=== PATIENT | female | born 1940 | race Caucasian/White ===

== ENCOUNTER 2021-09-25 13:52 | Inpatient (IN) | payer MEDICARE, OTHER ==
[~2021-09-25] VITALS: Ht 157.5 cm; Wt 79.4 kg
[~2021-09-25 13:52] MED LIST: AMLO5TAB88 PO; APIX5TAB PO; CHOL100046 PO; FURO-152 PO; LISI20TA31 PO; METO-411 PO; MULT-1203 PO; OXYB5TAB17 PO
[2021-09-25 15:00] VITALS: BP 128/66
[2021-09-25] MEDS ORDERED: ONDANSETRON HCL 4MG/2ML INJ IV PRN (15:00)
[2021-09-25 17:49] LABS: BASOPHILS % 0.8 % (0.0-2.0); HEMATOCRIT. 34.6 % (36.0-48.0); HEMOGLOBIN. 11.7 g/dL (12.0-16.0); LYMPHOCYTES % 24.8 % (20.0-50.0); MEAN CORPUSCULAR HEMOGLOBIN 30.2 pg (28.0-32.0); MEAN CORPUSCULAR VOLUME 89.2 fL (81.0-99.0); MEAN PLATELET VOLUME 7.6 fl (7.4-10.4); MONOCYTES % 10.1 % (2.0-8.0); NEUTROPHILS % 61.3 % (40.0-76.0); PLATELET 305 x1000/uL (130-400); RED BLOOD CELL COUNT 3.88 mill/uL (4.2-5.4); RED CELL DISTRIBUTION WIDTH 15.1 % (11.6-14.6)
[2021-09-25 18:01] LABS: PROTHROMBIN TIME 10.5 sec (9.6-11.0)
[2021-09-25 18:05] LABS: CHLORIDE 98 mEq/L (98-107)
[2021-09-25] MEDS ORDERED: ENOXAPARIN 40MG/0.4ML SYR SUBCUT SCH (21:00)
[2021-09-25 21:30] VITALS: BP 151/67
[2021-09-25] MEDS: METOPROLOL TARTRATE 50MG TABLET PO SCH (21:30)
[2021-09-25 23:31] VITALS: BP 139/65
[2021-09-26] VITALS (14 sets, daily range): BP systolic 113–199; BP diastolic 47–187
[2021-09-26 07:30] LABS: CHLORIDE 103 mEq/L (98-107)
[2021-09-26 07:57] LABS: BASOPHILS % 0.6 % (0.0-2.0); EOSINOPHILS % 2.2 % (0.0-5.0); HEMOGLOBIN. 12.4 g/dL (12.0-16.0); LYMPHOCYTES % 13.8 % (20.0-50.0); MEAN CORPUSCULAR HEMOGLOBIN 29.8 pg (28.0-32.0); MEAN CORPUSCULAR VOLUME 88.8 fL (81.0-99.0); MEAN PLATELET VOLUME 7.6 fl (7.4-10.4); MONOCYTES % 9.3 % (2.0-8.0); NEUTROPHILS % 74.1 % (40.0-76.0); PLATELET 304 x1000/uL (130-400); RED BLOOD CELL COUNT 4.16 mill/uL (4.2-5.4); RED CELL DISTRIBUTION WIDTH 15.4 % (11.6-14.6)
[2021-09-26] MEDS: METOPROLOL TARTRATE 50MG TABLET PO SCH ×2 (10:06→20:21)
[2021-09-26] MEDS: AMLODIPINE 5MG TABLET PO SCH (10:06)
[2021-09-26] MEDS: LISINOPRIL 10MG TABLET PO SCH (10:06)
[2021-09-26] MEDS ORDERED: DEXAMETHASONE 4MG/ML 1ML VIAL ONE (15:53)
[2021-09-26] MEDS ORDERED: ROCURONIUM BROMIDE 10MG/ML VIAL 5ML IV ONE (15:53)
[2021-09-26] MEDS ORDERED: CEFAZOLIN SODIUM 1000MG/VIAL ONE (16:13)
[2021-09-26] MEDS ORDERED: CALCIUM CHLORIDE 1GM/10ML SYR IV ONE ×2 (16:19→18:24)
[2021-09-26] MEDS ORDERED: FENTANYL CITRATE/PF 50MCG/ML 2ML VIAL ONE (16:31)
[2021-09-26] MEDS ORDERED: AMIODARONE HCL 50MG/ML 3ML VIAL IV ONE (16:33)
[2021-09-26] MEDS ORDERED: GLYCOPYRROLATE 0.2 MG/ML 2ML VIAL ONE (18:38)
[2021-09-26] MEDS ORDERED: HYDRALAZINE 20MG/ML VIAL IV PRN (19:00)
[2021-09-26] MEDS ORDERED: FENTANYL CITRATE/PF 50MCG/ML 2ML VIAL IV PRN (19:00)
[2021-09-26 19:20] LABS: BG BASE EXCESS -4.9 mmol/L (-2.0-2.0); BG CARBOXYHEMOGLOBIN 0.6 % (0.5-1.5); BG FRACTION INSPIRED OXYGEN 60; BG HCO3 ACT 20.1 mmol/L (22.0-26.0); BG METHEMOGLOBIN 0.2 % (0.0-1.5); BG OXYHEMOGLOBIN 95.2 % (94.0-97.0); BG PH 7.352 (7.350-7.450); BG SAMPLE SITE ALINE; BG TOTAL HEMOGLOBIN 11.8 g/dL (12.0-18.0); BG VENT MODE MASK - SIMPLE
[2021-09-26] MEDS ORDERED: MORPHINE SULFATE 2 MG/ML CPJ (NOT FOR IM USE) IV NR (20:30)
[2021-09-26] MEDS ORDERED: MORPHINE SULFATE 2 MG/ML CPJ (NOT FOR IM USE) IV PRN (20:45)
[2021-09-26] MEDS ORDERED: SODIUM CHLORIDE 10% FOR INH 15ML VIAL NEB INH SCH (21:00)
[2021-09-26] MEDS: HYDROCODONE/ACETAMINOPHEN 5/325MG TABLET PO PRN (22:29)
[2021-09-27] VITALS (92 sets, daily range): BP systolic 84–271; BP diastolic 52–261
[2021-09-27] MEDS ORDERED: NALOXONE HCL 0.4 MG/ML 1ML VIAL IV PRN (00:15)
[2021-09-27] MEDS: NITROGLYCERIN 0.4MG TABLET SL SL PRN ×2 (00:21→02:25)
[2021-09-27 06:06] LABS: HEMATOCRIT. 34.2 % (36.0-48.0); HEMOGLOBIN. 11.8 g/dL (12.0-16.0); MEAN CORPUSCULAR HEMOGLOBIN 30.2 pg (28.0-32.0); MEAN CORPUSCULAR VOLUME 87.7 fL (81.0-99.0); MEAN PLATELET VOLUME 7.3 fl (7.4-10.4); PLATELET 299 x1000/uL (130-400); RED CELL DISTRIBUTION WIDTH 15.2 % (11.6-14.6)
[2021-09-27 06:10] LABS: CHLORIDE 101 mEq/L (98-107)
[2021-09-27] MEDS ORDERED: POTASSIUM CHLORIDE 20MEQ TABLET SR PO SCH (07:00)
[2021-09-27] MEDS: AMLODIPINE 5MG TABLET PO SCH (08:07)
[2021-09-27] MEDS: METOPROLOL TARTRATE 50MG TABLET PO SCH ×2 (08:07→21:30)
[2021-09-27] MEDS: HYDROCODONE/ACETAMINOPHEN 5/325MG TABLET PO PRN ×3 (08:08→22:13)
[2021-09-27] MEDS: LISINOPRIL 10MG TABLET PO SCH (08:08)
[2021-09-27] MEDS: PIPERACILLIN/TAZOBACTAM 3.375 G in DEXTROSE 5% WATER 50 ML IV SCH ×3 (08:09→21:57)
[2021-09-27] MEDS ORDERED: CLONIDINE 0.1MG TABLET PO PRN (14:30)
[2021-09-27 15:17] LABS: PLATELET ESTIMATE NORMAL
[2021-09-27] MEDS ORDERED: AMOX-424 MT ×2 (17:04)
[2021-09-28] VITALS (97 sets, daily range): BP systolic 107–270; BP diastolic 62–268
[2021-09-28] MEDS: HYDROCODONE/ACETAMINOPHEN 5/325MG TABLET PO PRN ×2 (03:11→07:23)
[2021-09-28] MEDS: PIPERACILLIN/TAZOBACTAM 3.375 G in DEXTROSE 5% WATER 50 ML IV SCH ×3 (05:53→22:26)
[2021-09-28 06:05] LABS: BASOPHILS % 0.1 % (0.0-2.0); EOSINOPHILS % 0.7 % (0.0-5.0); HEMATOCRIT. 33.5 % (36.0-48.0); HEMOGLOBIN. 11.6 g/dL (12.0-16.0); LYMPHOCYTES % 7.2 % (20.0-50.0); MEAN CORPUSCULAR HEMOGLOBIN 30.3 pg (28.0-32.0); MEAN CORPUSCULAR VOLUME 87.8 fL (81.0-99.0); MEAN PLATELET VOLUME 7.3 fl (7.4-10.4); MONOCYTES % 9.5 % (2.0-8.0); NEUTROPHILS % 82.5 % (40.0-76.0); PLATELET 295 x1000/uL (130-400); RED BLOOD CELL COUNT 3.82 mill/uL (4.2-5.4); RED CELL DISTRIBUTION WIDTH 15.4 % (11.6-14.6)
[2021-09-28] MEDS ORDERED: HYDROCODONE/APAP 7.5/325MG 1 TAB TABLET PO PRN (08:00)
[2021-09-28] MEDS ORDERED: POTASSIUM CHLORIDE 20MEQ TABLET SR PO SCH (09:15)
[2021-09-28] MEDS: LISINOPRIL 20MG TABLET PO SCH (09:45)
[2021-09-28] MEDS: METOPROLOL TARTRATE 50MG TABLET PO SCH ×2 (09:45→21:08)
[2021-09-28] MEDS: AMLODIPINE 5MG TABLET PO SCH (09:45)
[2021-09-28] MEDS ORDERED: MORPHINE SULFATE 2 MG/ML CPJ (NOT FOR IM USE) IV PRN (10:15)
[2021-09-28] MEDS ORDERED: METOPROLOL TARTRATE 5MG/5ML VIAL IV SCH (14:00)
[2021-09-28] MEDS: MORPHINE SULFATE 2 MG/ML CPJ (NOT FOR IM USE) IV PRN ×4 (14:12→22:58)
[2021-09-28] MEDS ORDERED: METOPROLOL TARTRATE 5MG/5ML VIAL IV PRN (15:45)
[2021-09-28] MEDS: BENZONATATE 100MG CAPSULE PO PRN (16:46)
[2021-09-28] MEDS: APIXABAN 5 MG TABLET PO SCH (16:46)
[2021-09-28] MEDS: OXYCODONE HCL/ACETAMINOPHEN 5/325MG TABLET PO PRN (21:09)
[2021-09-29] VITALS (14 sets, daily range): BP systolic 108–149; BP diastolic 45–97
[2021-09-29] MEDS: PIPERACILLIN/TAZOBACTAM 3.375 G in DEXTROSE 5% WATER 50 ML IV SCH ×3 (05:25→21:38)
[2021-09-29] MEDS: MORPHINE SULFATE 2 MG/ML CPJ (NOT FOR IM USE) IV PRN (05:37)
[2021-09-29] MEDS: BENZONATATE 100MG CAPSULE PO PRN ×2 (05:37→21:34)
[2021-09-29 07:13] LABS: CHLORIDE 86 mEq/L (98-107)
[2021-09-29 07:23] LABS: BASOPHILS % 0.3 % (0.0-2.0); EOSINOPHILS % 2.2 % (0.0-5.0); HEMATOCRIT. 33.7 % (36.0-48.0); HEMOGLOBIN. 11.6 g/dL (12.0-16.0); LYMPHOCYTES % 8.4 % (20.0-50.0); MEAN CORPUSCULAR HEMOGLOBIN 30.4 pg (28.0-32.0); MEAN PLATELET VOLUME 7.3 fl (7.4-10.4); MONOCYTES % 8.1 % (2.0-8.0); PLATELET 274 x1000/uL (130-400); RED BLOOD CELL COUNT 3.82 mill/uL (4.2-5.4); RED CELL DISTRIBUTION WIDTH 15.4 % (11.6-14.6)
[2021-09-29] MEDS: LISINOPRIL 20MG TABLET PO SCH (09:34)
[2021-09-29] MEDS: OXYCODONE HCL/ACETAMINOPHEN 5/325MG TABLET PO PRN ×2 (09:35→21:29)
[2021-09-29] MEDS: METOPROLOL TARTRATE 50MG TABLET PO SCH ×2 (09:35→21:26)
[2021-09-29] MEDS: APIXABAN 5 MG TABLET PO SCH ×2 (09:35→18:06)
[2021-09-29] MEDS: AMLODIPINE 5MG TABLET PO SCH (09:35)
[2021-09-29] MEDS ORDERED: SODIUM CHLORIDE 0.9% 1,000 ML IV SCH (11:15)
[2021-09-29] MEDS: DOCUSATE SODIUM 250MG CAPSULE PO SCH (11:40)
[2021-09-29 12:35] LABS: SODIUM URINE RANDOM 20 mEq/L
[2021-09-29 13:13] LABS: CHLORIDE 86 mEq/L (98-107)
[2021-09-29] MEDS: ZOLPIDEM TARTRATE 5MG TABLET PO PRN (22:46)
[2021-09-30] VITALS (11 sets, daily range): BP systolic 101–147; BP diastolic 65–93
[2021-09-30] MEDS: OXYCODONE HCL/ACETAMINOPHEN 5/325MG TABLET PO PRN ×4 (05:03→22:07)
[2021-09-30] MEDS: PIPERACILLIN/TAZOBACTAM 3.375 G in DEXTROSE 5% WATER 50 ML IV SCH ×2 (05:12→18:36)
[2021-09-30 06:57] LABS: BASOPHILS % 0.5 % (0.0-2.0); EOSINOPHILS % 3.2 % (0.0-5.0); HEMOGLOBIN. 11.1 g/dL (12.0-16.0); LYMPHOCYTES % 14.3 % (20.0-50.0); MEAN CORPUSCULAR HEMOGLOBIN 30.1 pg (28.0-32.0); MEAN CORPUSCULAR VOLUME 87.1 fL (81.0-99.0); MEAN PLATELET VOLUME 7.4 fl (7.4-10.4); MONOCYTES % 11.7 % (2.0-8.0); NEUTROPHILS % 70.3 % (40.0-76.0); PLATELET 268 x1000/uL (130-400); RED BLOOD CELL COUNT 3.68 mill/uL (4.2-5.4); RED CELL DISTRIBUTION WIDTH 15.5 % (11.6-14.6)
[2021-09-30 07:09] LABS: CHLORIDE 85 mEq/L (98-107)
[2021-09-30] MEDS: LISINOPRIL 20MG TABLET PO SCH (09:00)
[2021-09-30] MEDS: AMLODIPINE 5MG TABLET PO SCH (09:00)
[2021-09-30] MEDS: METOPROLOL TARTRATE 50MG TABLET PO SCH ×2 (09:00→21:06)
[2021-09-30] MEDS: APIXABAN 5 MG TABLET PO SCH ×2 (09:47→16:40)
[2021-09-30] MEDS: DOCUSATE SODIUM 250MG CAPSULE PO SCH (09:48)
[2021-09-30] MEDS ORDERED: SODIUM CHLORIDE 3% 250 ML IV SCH (13:00)
[2021-09-30] MEDS: ZOLPIDEM TARTRATE 5MG TABLET PO PRN (21:06)
[2021-10-01] VITALS (13 sets, daily range): BP systolic 95–164; BP diastolic 22–91
[2021-10-01] MEDS: PIPERACILLIN/TAZOBACTAM 3.375 G in DEXTROSE 5% WATER 50 ML IV SCH ×4 (01:46→21:09)
[2021-10-01] MEDS: OXYCODONE HCL/ACETAMINOPHEN 5/325MG TABLET PO PRN ×4 (03:44→20:55)
[2021-10-01 06:21] LABS: BASOPHILS % 0.5 % (0.0-2.0); EOSINOPHILS % 2.5 % (0.0-5.0); HEMATOCRIT. 31.3 % (36.0-48.0); HEMOGLOBIN. 10.8 g/dL (12.0-16.0); LYMPHOCYTES % 11.4 % (20.0-50.0); MEAN CORPUSCULAR HEMOGLOBIN 29.8 pg (28.0-32.0); MEAN CORPUSCULAR VOLUME 86.6 fL (81.0-99.0); MEAN PLATELET VOLUME 7.3 fl (7.4-10.4); MONOCYTES % 10.8 % (2.0-8.0); NEUTROPHILS % 74.8 % (40.0-76.0); PLATELET 257 x1000/uL (130-400); RED BLOOD CELL COUNT 3.61 mill/uL (4.2-5.4); RED CELL DISTRIBUTION WIDTH 15.3 % (11.6-14.6)
[2021-10-01 06:29] LABS: CHLORIDE 88 mEq/L (98-107)
[2021-10-01 06:45] LABS: HDL CHOLESTEROL 37 mg/dL (40-59)
[2021-10-01 06:48] LABS: LDL CHOLESTEROL 65 mg/dL (5-100)
[2021-10-01] MEDS: AMLODIPINE 5MG TABLET PO SCH (08:45)
[2021-10-01] MEDS: APIXABAN 5 MG TABLET PO SCH ×2 (08:45→16:58)
[2021-10-01] MEDS: METOPROLOL TARTRATE 50MG TABLET PO SCH ×2 (08:45→20:56)
[2021-10-01] MEDS: DOCUSATE SODIUM 250MG CAPSULE PO SCH (08:45)
[2021-10-01] MEDS: LISINOPRIL 20MG TABLET PO SCH (08:46)
[2021-10-01] MEDS ORDERED: SODIUM CHLORIDE 3% 250 ML IV NR (10:30)
[2021-10-01] MEDS ORDERED: SODIUM CHLORIDE 3% 500 ML IV ONE (11:30)
[2021-10-01] MEDS ORDERED: SODIUM CHLORIDE 3% 250 ML IV SCH (17:30)
[2021-10-01] MEDS: BENZONATATE 100MG CAPSULE PO PRN (20:55)
[2021-10-02] VITALS (12 sets, daily range): BP systolic 98–166; BP diastolic 52–91
[2021-10-02] MEDS: OXYCODONE HCL/ACETAMINOPHEN 5/325MG TABLET PO PRN ×5 (01:11→22:04)
[2021-10-02] MEDS: PIPERACILLIN/TAZOBACTAM 3.375 G in DEXTROSE 5% WATER 50 ML IV SCH (05:16)
[2021-10-02 07:11] LABS: BASOPHILS % 0.6 % (0.0-2.0); EOSINOPHILS % 3.7 % (0.0-5.0); HEMATOCRIT. 32.4 % (36.0-48.0); HEMOGLOBIN. 10.9 g/dL (12.0-16.0); LYMPHOCYTES % 16.7 % (20.0-50.0); MEAN CORPUSCULAR HEMOGLOBIN 29.6 pg (28.0-32.0); MEAN CORPUSCULAR VOLUME 87.7 fL (81.0-99.0); MEAN PLATELET VOLUME 7.4 fl (7.4-10.4); MONOCYTES % 12.2 % (2.0-8.0); NEUTROPHILS % 66.8 % (40.0-76.0); PLATELET 294 x1000/uL (130-400); RED BLOOD CELL COUNT 3.69 mill/uL (4.2-5.4); RED CELL DISTRIBUTION WIDTH 15.3 % (11.6-14.6)
[2021-10-02 07:22] LABS: CHLORIDE 94 mEq/L (98-107)
[2021-10-02] MEDS: BENZONATATE 100MG CAPSULE PO PRN (07:38)
[2021-10-02] MEDS: METOPROLOL TARTRATE 50MG TABLET PO SCH ×3 (09:00→22:04)
[2021-10-02] MEDS: APIXABAN 5 MG TABLET PO SCH (09:14)
[2021-10-02] MEDS: DOCUSATE SODIUM 250MG CAPSULE PO SCH (09:15)
[2021-10-02] MEDS: AMLODIPINE 5MG TABLET PO SCH ×2 (09:15→10:16)
[2021-10-02] MEDS: LISINOPRIL 20MG TABLET PO SCH ×2 (09:15→10:16)
[2021-10-02] MEDS: ACETAMINOPHEN 325MG TABLET PO PRN (09:25)
[2021-10-02] MEDS ORDERED: MORPHINE SULFATE 2 MG/ML CPJ (NOT FOR IM USE) IV PRN (11:00)
[2021-10-02] MEDS ORDERED: GUAIFENESIN/DM 600MG/30MG ER TAB 12HR PO PRN (11:00)
[2021-10-02] MEDS ORDERED: RACEPINEPHRINE 2.25% 0.5ML NEB VIAL HHN SCH (11:45)
[2021-10-02] MEDS ORDERED: RACEPINEPHRINE 2.25% 0.5ML NEB VIAL HHN PRN (11:45)
[2021-10-02] MEDS: IPRATROPIUM/ALBUTEROL 0.5-3(2.5)MG/3ML NEB HHN SCH (11:55)
[2021-10-02] MEDS ORDERED: SODIUM CHLORIDE 10% FOR INH 15ML VIAL NEB INH SCH (13:00)
[2021-10-02] MEDS ORDERED: LIDOCAINE 5% PATCH TOP PRN (17:15)
[2021-10-02] MEDS ORDERED: APIX5TAB PO (18:33)
[2021-10-02] MEDS ORDERED: TRAM50TA3 PO (18:33)
[2021-10-02] MEDS ORDERED: BENZ100C86 PO (18:33)
[2021-10-02] MEDS ORDERED: OXYB5TAB17 PO (18:33)
[2021-10-02] MEDS ORDERED: METO-411 PO (18:33)
[2021-10-02] MEDS ORDERED: ZINC OXIDE 20% OINT 30GM TOP PRN (19:30)
[2021-10-03] VITALS (11 sets, daily range): BP systolic 99–150; BP diastolic 56–98
[2021-10-03] MEDS: IPRATROPIUM/ALBUTEROL 0.5-3(2.5)MG/3ML NEB HHN SCH ×3 (01:00→15:16)
[2021-10-03] MEDS: OXYCODONE HCL/ACETAMINOPHEN 5/325MG TABLET PO PRN ×4 (03:36→22:09)
[2021-10-03 05:12] LABS: HEMATOCRIT. 30.8 % (36.0-48.0); HEMOGLOBIN. 10.6 g/dL (12.0-16.0); MEAN CORPUSCULAR HEMOGLOBIN 30.5 pg (28.0-32.0); MEAN CORPUSCULAR VOLUME 88.3 fL (81.0-99.0); MEAN PLATELET VOLUME 7.3 fl (7.4-10.4); PLATELET 288 x1000/uL (130-400); RED BLOOD CELL COUNT 3.49 mill/uL (4.2-5.4); RED CELL DISTRIBUTION WIDTH 15.3 % (11.6-14.6)
[2021-10-03 05:35] LABS: CHLORIDE 95 mEq/L (98-107)
[2021-10-03] MEDS: DOCUSATE SODIUM 250MG CAPSULE PO SCH (08:02)
[2021-10-03] MEDS: LISINOPRIL 20MG TABLET PO SCH (08:02)
[2021-10-03] MEDS: METOPROLOL TARTRATE 50MG TABLET PO SCH ×2 (08:03→20:51)
[2021-10-03] MEDS: AMLODIPINE 5MG TABLET PO SCH (08:03)
[2021-10-03] MEDS: ACETAMINOPHEN 325MG TABLET PO PRN (20:50)
[2021-10-03] MEDS: ZOLPIDEM TARTRATE 5MG TABLET PO PRN (20:51)
[2021-10-03 20:55] LABS: PLATELET ESTIMATE NORMAL
[2021-10-03] MEDS ORDERED: NALOXONE HCL 0.4MG/ML VIAL IV PRN (21:30)
[2021-10-04] VITALS (7 sets, daily range): BP systolic 114–172; BP diastolic 68–98
[2021-10-04] MEDS: OXYCODONE HCL/ACETAMINOPHEN 5/325MG TABLET PO PRN (06:16)
[2021-10-04] MEDS ORDERED: LIDO700A30 TOP (06:59)
[2021-10-04] MEDS ORDERED: DOCU250C14 PO (06:59)
[2021-10-04 08:00] LABS: HEMATOCRIT. 32.4 % (36.0-48.0); HEMOGLOBIN. 10.9 g/dL (12.0-16.0); MEAN CORPUSCULAR HEMOGLOBIN 29.5 pg (28.0-32.0); MEAN CORPUSCULAR VOLUME 88.1 fL (81.0-99.0); MEAN PLATELET VOLUME 7.3 fl (7.4-10.4); PLATELET 349 x1000/uL (130-400); RED BLOOD CELL COUNT 3.68 mill/uL (4.2-5.4); RED CELL DISTRIBUTION WIDTH 15.6 % (11.6-14.6)
[2021-10-04 08:06] LABS: CHLORIDE 94 mEq/L (98-107)
[2021-10-04] MEDS: METOPROLOL TARTRATE 50MG TABLET PO SCH (08:25)
[2021-10-04] MEDS: DOCUSATE SODIUM 250MG CAPSULE PO SCH (08:25)
[2021-10-04] MEDS: AMLODIPINE 5MG TABLET PO SCH (08:26)
[2021-10-04] MEDS: LISINOPRIL 20MG TABLET PO SCH (08:26)
[2021-10-04 14:09] LABS: PLATELET ESTIMATE NORMAL
== END 2021-10-04 11:40 | disposition home health service (06) | DRG 167 ==
LOC: 6WST 13:52 → CVICU 09-26 18:55 → 3WST 09-28 18:33
PROVIDERS: ADMIT Internal Medicine Critical Care Medicine; ATTEND Internal Medicine Critical Care Medicine
PROC: 07B74ZX Excision of Thorax Lymphatic, Percutaneous Endoscopic Approach, Diagnostic (ICD-10-PCS; principal; 2021-09-26)
PROC: 0BBG8ZX Excision of Left Upper Lung Lobe, Via Natural or Artificial Opening Endoscopic, Diagnostic (ICD-10-PCS; 2021-09-26)
PROC: 0B9 Respiratory System, Drainage (ICD-10-PCS; 2021-09-26)
PROC: 3E0T3BZ Introduction of Anesthetic Agent into Peripheral Nerves and Plexi, Percutaneous Approach (ICD-10-PCS; 2021-09-26)
PROC: 0W9B30Z Drainage of Left Pleural Cavity with Drainage Device, Percutaneous Approach (ICD-10-PCS; 2021-09-26)
DX: R91.8 Other nonspecific abnormal finding of lung field (principal); E87.1 Hypo-osmolality and hyponatremia; J93.9 Pneumothorax, unspecified; I48.91 Unspecified atrial fibrillation; I10 Essential (primary) hypertension; Z20.822 Contact with and (suspected) exposure to COVID-19; E87.6 Hypokalemia; N32.81 Overactive bladder; R59.0 Localized enlarged lymph nodes; Z79.01 Long term (current) use of anticoagulants; Z87.01 Personal history of pneumonia (recurrent); Z87.891 Personal history of nicotine dependence
CPT/HCPCS: 36415; 36600; 71045; 71250; 73706; 80048; 80053; 80061; 82375; 82533; 82805; 83930; 83935; 84295; 84300; 84443; 84484; 85025; 87070; 87075; 87426; 88305; 88312; 93005; 94640; 97162; 97166; 97530; C1893; J0282; J0690; J1100; J1650; J2270; J2543; J3010; J3490; J7030; J7042; J7060; J7131; A4315